=== PATIENT | female | born 1995 | race Two or more races ===

== ENCOUNTER → 2019-05-26 | Outpatient (CLI) | payer OTHER, SELFPAY ==
[2019-05-26 16:56] LABS: HEMATOCRIT 38.8 % (36.0-47.0); HEMOGLOBIN 12.4 g/dl (12.0-15.5); MEAN CORPUSCULAR HEMOGLOBIN 26.6 pg (27.0-33.0); MEAN CORPUSCULAR VOLUME 83.1 fl (80.0-96.0); PLATELET COUNT, AUTOMATED 232 10^3/uL (150-450); RED BLOOD COUNT 4.67 10^6/uL (4.00-5.40); WHITE BLOOD COUNT 7.7 10^3/uL (4.0-10.0)
[2019-05-26 22:07] LABS: CHLAMYDIA DNA AMPLIFICATION NEGATIVE (NEGATIVE); GC DNA AMPLIFICATION NEGATIVE (NEGATIVE)
[2019-05-27 09:47] LABS: HIV 1&2 SCREEN CENTAUR NEGATIVE (NEGATIVE); RUBELLA IgG QUALITATIVE IMMUNE (IMMUNE)
[2019-05-28 12:57] LABS: HEPATITIS B SURFACE ANTIGEN NEGATIVE (NEGATIVE); HEPATITIS C VIRUS ABY INDEX 0.1 INDEX (<0.8)
== END ==
LOC: M LRY 11:39
PROVIDERS: ATTEND Advanced Practice Midwife
DX: Z34.80 Encounter for supervision of other normal pregnancy, unspecified trimester (principal); Z3A.09 9 weeks gestation of pregnancy

== ENCOUNTER → 2019-09-05 | Outpatient (REF) | payer OTHER ==
[2019-09-05 14:23] LABS: HEMATOCRIT 32.9 % (36.0-47.0); HEMOGLOBIN 10.4 g/dl (12.0-15.5); MEAN CORPUSCULAR HEMOGLOBIN 26.9 pg (27.0-33.0); MEAN CORPUSCULAR HGB CONC 31.6 g/dl (32.0-36.5); MEAN CORPUSCULAR VOLUME 85.2 fl (80.0-96.0); PLATELET COUNT, AUTOMATED 204 10^3/uL (150-450); RED BLOOD COUNT 3.86 10^6/uL (4.00-5.40); WHITE BLOOD COUNT 8.7 10^3/uL (4.0-10.0)
== END ==
LOC: M PLALAB 11:41
PROVIDERS: ATTEND Advanced Practice Midwife
DX: Z36.89 Encounter for other specified antenatal screening (principal); Z3A.27 27 weeks gestation of pregnancy

== ENCOUNTER → 2019-09-05 | Outpatient (CLI) | payer OTHER ==
--- NOTE | 2019-09-05 17:12 | REP ---
Clinical: Anatomical evaluation. Findings: Examination demonstrates a single live intrauterine in cephalic presentation. motion is identified by technologist. Placenta is noted posterior and grade I without evidence for placenta previa or abruption. Amniotic fluid volume is normal. Cervix measures 3.8 cm in length and appears closed. No evidence for nuchal cord. Gestational age by LMP 27 weeks 4 days with CHAPINCITO 12/01/2019 . Gestational age by current measurements 27 weeks 2 days with CHAPINCITO 12/03/2019 . FHR equals 156 beats per minute. Estimated weight 1099 grams ( 42nd percentile). Anatomical assessment demonstrates normal structures including cranium, facial features, lungs, diaphragm, stomach, cord insertion/three-vessel cord, kidneys/bladder, and spine. Impression: Single live intrauterine in cephalic presentation demonstrating appropriate interval growth. In conjunction with prior examination anatomical assessment is complete and normal.
== END ==
LOC: M WHC 10:54
PROVIDERS: ATTEND Advanced Practice Midwife
DX: Z36.89 Encounter for other specified antenatal screening (principal); Z3A.27 27 weeks gestation of pregnancy

== ENCOUNTER 2019-11-07 23:09 | Outpatient (CLI) | payer OTHER ==
[2019-11-07 23:16] VITALS: BP 109/53
[2019-11-07] MEDS ORDERED: PRENTAB9 PO (23:43)
[2019-11-07] MEDS ORDERED: MAPA500T2 PO (23:43)
--- NOTE | 2019-11-08 00:17 | IPNPDOC ---
Text Note Date of Service The patient was seen on 11/08/19. NOTE Outpatient 24yo CHAPINCITO 12/01/2019. Presents @ 36w4d with complaints of shortness of breath. "Feel like I have a brick on my chest." Denies fever, cough. States no one else has been ill. Denies LOF, bleeding or regular UC Cat I tracing, no UC Audibly short of breath while speaking. Covid swab obtained. Pt discharged to ED for respiratory workup. Keep appt next week VS,Fishbone, I+O VS, Fishbone, I+O Vital Signs Date Time Temp Pulse Resp B/P (MAP) Pulse Ox O2 Delivery O2 Flow Rate FiO2 11/07/19 23:16 98.8 81 18 109/53 (71) 100 Room Air Mervat Reid CNM Nov 08, 2019 00:17
== END 2019-11-08 00:35 | disposition other institution (70) ==
LOC: EEVIPCON 23:09 → M LDO 23:09
PROVIDERS: ATTEND Advanced Practice Midwife
DX: O99.513 Diseases of the respiratory system complicating pregnancy, third trimester (principal); R06.02 Shortness of breath; Z3A.36 36 weeks gestation of pregnancy
CPT/HCPCS: 59025; G0378; G0463; U0002

== ENCOUNTER 2019-11-08 00:46 | Emergency (ER) | payer OTHER ==
[~2019-11-08] VITALS: Ht 160 cm; Wt 98.2 kg
[~2019-11-08 00:46] MED LIST: MAPA500T2 PO; PRENTAB9 PO
[2019-11-08 00:48] VITALS: BP 131/60
== END 2019-11-08 01:29 | disposition home or self-care (01) ==
LOC: M ED 00:46
DX: O99.89 Other specified diseases and conditions complicating pregnancy, childbirth and the puerperium (principal); R06.02 Shortness of breath; Z3A.00 Weeks of gestation of pregnancy not specified

== ENCOUNTER 2019-11-27 03:00 | Inpatient (IN) | payer OTHER ==
[2019-11-27] MEDS ORDERED: OXYTOCIN 30 UNITS IN 0.9% NaCl 500ML IV BAG (J2590) ONE (03:35)
[2019-11-27] MEDS ORDERED: OXYTOCIN 30 UNITS IN 0.9% NaCl 500ML IV BAG (J2590) As Ordered ONE (03:35)
[2019-11-27] MEDS ORDERED: FENTANYL 2MCG/ML ROPIVACAINE 0.2% IN 0.9% NACL 100ML IVBAG ONE (05:45)
[2019-11-27] MEDS ORDERED: FENTANYL 2MCG/ML ROPIVACAINE 0.2% IN 0.9% NACL 100ML IVBAG As Ordered ONE (05:45)
[2019-11-27] MEDS ORDERED: ePHEDrine SULFATE 25 MG/5 ML(5MG/ML) SYRINGE ONE (05:45)
[2019-11-27] MEDS ORDERED: ePHEDrine SULFATE 25 MG/5 ML(5MG/ML) SYRINGE As Ordered ONE (07:42)
[2019-11-27] MEDS ORDERED: ACETAMINOPHEN 500 MG TAB As Ordered ONE (17:43)
[2019-11-27] MEDS ORDERED: ACETAMINOPHEN 500 MG TAB ONE (17:43)
[2019-11-27] MEDS ORDERED: IBUPROFEN 800 MG TAB ONE (22:04)
[2019-11-27] MEDS ORDERED: IBUPROFEN 800 MG TAB As Ordered ONE (22:04)
[2019-11-28] MEDS ORDERED: IBUPROFEN 800 MG TAB ONE (09:16)
[2019-11-28] MEDS ORDERED: IBUPROFEN 800 MG TAB As Ordered ONE (09:16)
[2019-11-28] MEDS ORDERED: ACETAMINOPHEN 500 MG TAB As Ordered ONE (16:34)
[2019-11-28] MEDS ORDERED: ACETAMINOPHEN 500 MG TAB ONE (16:34)
[2019-11-28] MEDS ORDERED: MOM 30ML SUSPENSION UDC As Ordered ONE (17:41)
[2019-11-28] MEDS ORDERED: MOM 30ML SUSPENSION UDC ONE (17:41)
[2020-01-24 11:00] LABS: HEMATOCRIT 31.8 % (36.0-47.0); HEMOGLOBIN 10.1 g/dl (12.0-15.5); MEAN CORPUSCULAR HEMOGLOBIN 25.3 pg (27.0-33.0); MEAN CORPUSCULAR HGB CONC 31.8 g/dl (32.0-36.5); MEAN CORPUSCULAR VOLUME 79.7 fl (80.0-96.0); PLATELET COUNT, AUTOMATED 216 10^3/uL (150-450); RED BLOOD COUNT 3.99 10^6/uL (4.00-5.40); WHITE BLOOD COUNT 8.9 10^3/uL (4.0-10.0)
[2020-02-16 17:45] LABS: CORD GAS PCO2 A 70.9 mmHg; CORD GAS PH A 7.088 UNITS
[2020-02-16 17:46] LABS: CORD GAS ABE A -10.5; CORD GAS ABE V -7.5; CORD GAS HCO3 A 20.9 MEQ/L; CORD GAS HCO3 V 19.4 MEQ/L; CORD GAS O2 SAT A 55.4 %; CORD GAS PCO2 V 44.3 mmHg; CORD GAS PH V 7.26 UNITS; CORD GAS PO2 A 31.5 mmHg; CORD GAS PO2 V 40.8 mmHg; CORD GAS SBC A 15.4 MEQ/L; CORD GAS SBC V 18.1 MEQ/L; CORD GAS TCO2 A 23.1 MEQ/L; CORD GAS TCO2 V 20.8 MEQ/L
== END 2019-11-29 14:55 | disposition home or self-care (01) | DRG 807 ==
LOC: M LDI 03:00
PROVIDERS: ADMIT Advanced Practice Midwife; ATTEND Advanced Practice Midwife
PROC: 10E0XZZ Delivery of Products of Conception, External Approach (ICD-10-PCS; principal; 2019-11-27)
DX: O80 Encounter for full-term uncomplicated delivery (principal); Z37.0 Single live birth; Z3A.39 39 weeks gestation of pregnancy

== ENCOUNTER 2020-05-17 04:38 | Emergency (ER) | payer OTHER ==
[~2020-05-17] VITALS: Ht 160 cm; Wt 83.9 kg
[2020-05-17] MEDS ORDERED: KETOROLAC 60MG 2ML VIAL IM ONE (05:00)
[2020-05-17] MEDS ORDERED: METOCLOPRAMIDE INJ 10MG/2ML VIAL (J2765 PER 1) IM ONE (05:00)
[2020-05-17 06:09] VITALS: BP 135/64
== END 2020-05-17 06:10 | disposition home or self-care (01) ==
LOC: M ED 04:38
DX: J06.9 Acute upper respiratory infection, unspecified (principal); G44.209 Tension-type headache, unspecified, not intractable
CPT/HCPCS: 96372; 99283; J1885; J2765

== ENCOUNTER → 2020-11-30 | Outpatient (CLI) | payer OTHER ==
--- NOTE | 2020-11-30 15:35 | REP ---
INDICATION: ANATOMY. COMPARISON: None. FINDINGS: Living fetus in vertex presentation. heart rate 143 beats per minute. Anterior grade 1 placenta. No evidence of previa. Three vessels identified in the umbilical cord BPD 4.4 cm Head circumference 16.8 cm Abdominal circumference 14.2 cm Femur length 3.1 cm. These values correspond to gestational age of 19 weeks and 4 days. Anatomic survey was suboptimal for the face/profile and nose/lips. Main of the survey was completed and was unremarkable. Amniotic fluid is normal. Calculated weight 296 g. Cervical length 3.2 cm. IMPRESSION: Living intrauterine fetus CHAPINCITO 04/22/2021. <Electronically signed by Les Espinal > 11/30/20 [id number]
== END ==
LOC: M WHC 14:30
PROVIDERS: ATTEND Obstetrics & Gynecology
DX: Z34.92 Encounter for supervision of normal pregnancy, unspecified, second trimester (principal)

== ENCOUNTER → 2021-01-04 | Outpatient (CLI) | payer OTHER ==
--- NOTE | 2021-01-05 05:59 | REP ---
INDICATION: F/U ANATOMY COMPARISON: 11/30/2020 TECHNIQUE: Transabdominal obstetrical ultrasound with color Doppler evaluation. FINDINGS: Examination demonstrates a single live intrauterine in cephalic presentation. motion is identified by technologist. Placenta is noted anterior and grade 0 without evidence for placenta previa or abruption. Amniotic fluid volume is normal. Cervix measures 3.4 cm in length and appears closed.. Selected gestational age: 24 weeks 0 days with CHAPINCITO 04/26/2021. Gestational age by current measurements 25 weeks 2 days with CHAPINCITO 04/17/2021. FHR equals 127 beats per minute. Estimated weight 781 grams (90thpercentile). Anatomical assessment demonstrates normal structures including facial profile, nose/lips and facial features. IMPRESSION: Single live intrauterine in cephalic presentation demonstrating appropriate interval growth. In conjunction with prior examination anatomical assessment is complete and normal. <Electronically signed by Boston Wells > 01/05/21 [id number]
== END ==
LOC: M WHC 12:27
PROVIDERS: ATTEND Obstetrics & Gynecology
DX: Z36.9 Encounter for antenatal screening, unspecified (principal); Z3A.25 25 weeks gestation of pregnancy

== ENCOUNTER → 2021-02-22 | Outpatient (CLI) | payer OTHER ==
[2021-02-22 13:41] LABS: HEMATOCRIT 32.1 % (36.0-47.0); HEMOGLOBIN 10.4 g/dl (12.0-15.5); MEAN CORPUSCULAR HEMOGLOBIN 27.7 pg (27.0-33.0); MEAN CORPUSCULAR HGB CONC 32.4 g/dl (32.0-36.5); MEAN CORPUSCULAR VOLUME 85.4 fl (80.0-96.0); PLATELET COUNT, AUTOMATED 179 10^3/uL (150-450); RED BLOOD COUNT 3.76 10^6/uL (4.00-5.40); WHITE BLOOD COUNT 6.9 10^3/uL (4.0-10.0)
[2021-02-22 15:57] LABS: GC DNA AMPLIFICATION NEGATIVE (NEGATIVE)
== END ==
LOC: M PLALAB 10:25
PROVIDERS: ATTEND Obstetrics & Gynecology
DX: Z34.82 Encounter for supervision of other normal pregnancy, second trimester (principal)

== ENCOUNTER → 2021-03-23 | Outpatient (REF) | payer OTHER | LOC: M SFHCWAGY 17:12 | PROVIDERS: ATTEND Advanced Practice Midwife | DX: R82.90 Unspecified abnormal findings in urine (principal) ==

== ENCOUNTER → 2021-03-30 | Outpatient (CLI) | payer OTHER | LOC: M WHC 09:00 | PROVIDERS: ATTEND Advanced Practice Midwife | DX: Z34.82 Encounter for supervision of other normal pregnancy, second trimester (principal); Z53.8 Procedure and treatment not carried out for other reasons ==

== ENCOUNTER → 2021-04-01 | Outpatient (REF) | payer OTHER | LOC: M SFHCWAGY 17:02 | PROVIDERS: ATTEND Obstetrics & Gynecology | DX: Z34.83 Encounter for supervision of other normal pregnancy, third trimester (principal) ==

== ENCOUNTER 2021-04-20 11:56 | Inpatient (IN) | payer OTHER ==
[2021-04-20] VITALS (20 sets, daily range): BP systolic 95–135; BP diastolic 56–84
[~2021-04-20] VITALS: Ht 160 cm; Wt 95.2 kg
[2021-04-20] MEDS ORDERED: PRENTAB9 PO (12:09)
[2021-04-20] MEDS ORDERED: LIDOCAINE 1% MDV 20ML VIAL INFIL PRN (12:40)
[2021-04-20] MEDS ORDERED: OXYTOCIN DRIP 30 UNITS in IV 1 EA IV PRN ×4 (12:40)
[2021-04-20] MEDS ORDERED: CARBOPROST TROMETHAMINE 250 MCG/ML AMP IM PRN (12:40)
[2021-04-20] MEDS ORDERED: METHYLERGONOVINE MALEATE 0.2 MG/ML VIAL (J2210) IM PRN (12:40)
[2021-04-20] MEDS ORDERED: TRANEXAMIC ACID INJection 1,000 MG in NS 100 ML IV PRN (12:40)
[2021-04-20] MEDS ORDERED: OXYTOCIN INJ 10 UNITS/ML VIAL (J2590) IM PRN (12:40)
[2021-04-20] MEDS ORDERED: HOME MED LIST COMPLETE! XX SCH (13:10)
[2021-04-20 13:20] LABS: HEMATOCRIT 35.6 % (36.0-47.0); HEMOGLOBIN 11.7 g/dl (12.0-15.5); MEAN CORPUSCULAR HGB CONC 32.9 g/dl (32.0-36.5); MEAN CORPUSCULAR VOLUME 82.2 fl (80.0-96.0); PLATELET COUNT, AUTOMATED 213 10^3/uL (150-450); RED BLOOD COUNT 4.33 10^6/uL (4.00-5.40); WHITE BLOOD COUNT 9.1 10^3/uL (4.0-10.0)
[2021-04-20] MEDS ORDERED: OXYTOCIN DRIP 30 UNITS in IV 1 EA IV SCH (15:25)
[2021-04-20] MEDS ORDERED: LR 1,000 ML IV SCH (15:25)
--- NOTE | 2021-04-20 15:45 | HPE ---
HISTORY AND PHYSICAL DATE OF ADMISSION: 04/20/2021 HISTORY OF PRESENT ILLNESS: Rosalva is a 25-year-old 3, para 2,0,0,2 at 39 weeks and 1 day with an EDC of 04/26/2021 based on first trimester ultrasound. She presents to labor and delivery today with report of spontaneous rupture of membranes at approximately 11:20 a.m. She does report that contractions started almost immediately following rupture. She does report some mild bloody show and the fetus has been active. She has continued to have leakage. Her care was initiated at [facility] in the first trimester. Her course has been complicated by mild anemia. OBSTETRIC HISTORY: November 06, 2018 39 weeks gestation vaginal delivery, male, 7 pounds 1 ounces, vacuum-assisted; November 27, 2019 39 weeks and 5 days, 7 pounds 8 ounce male, vaginal delivery, no complications. OBSTETRIC LABS: A positive, antibody screen negative, Syphilis negative, Gonorrhea and Chlamydia negative. Hepatitis B negative. Hepatitis C negative. HIV negative. Rubella immune. Gestational diabetic screening normal at 87, Urine culture with no growth and GBS is negative. PAST MEDICAL HISTORY: Abnormal Pap smear. PAST SURGICAL HISTORY: Colposcopy. FAMILY HISTORY: Noncontributory. SOCIAL HISTORY: The patient is . and mother are at bedside for support. She is a nonsmoker. She denies alcohol and drug use. 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 She denies history of abuse, physical, sexual and emotional. ALLERGIES: NO KNOWN DRUG ALLERGIES. CURRENT MEDICATIONS: vitamin. PHYSICAL EXAMINATION: VITAL SIGNS: Temperature 97.9, pulse 93, respirations 18, BP 125/81. heart rate is 130 with moderate variability, positive accelerations and negative decelerations. Contractions are every 2-4 minutes. STERILE SPECULUM EXAM: She is grossly ruptured, clear fluid. STERILE VAGINAL EXAM: 2 cm dilated, 80% effaced, ballotable station. ABDOMEN: Gravid with cephalic presentation, estimated weight 7-1/2 pounds ASSESSMENT: Intrauterine at 39-1/7 weeks gestation. heart rate is category 1. Spontaneous rupture of membranes, early labor. PLAN: Admit the patient to labor and delivery. Out of bed ad grover. Routine laboratories. The patient desires to cope with her labor physiologically at this time. I do anticipate continued labor progress. The patient and her family's questions have been answered.
[2021-04-20] MEDS ORDERED: FENTANYL 2MCG/ML ROPIVACAINE 0.2% IN 0.9% NACL 100ML IVBAG As Ordered ONE (20:00)
--- NOTE | 2021-04-20 21:26 | DN ---
DELIVERY NOTE DATE OF DELIVERY: 04/20/2021 TIME OF : 2042 GENDER: Female APGARS: 9 and 9 LACERATIONS: ANESTHESIA: ESTIMATED BLOOD LOSS: 300 mL COUNTS: Correct and verified DESCRIPTION OF DELIVERY: Rosalva is a 25-year-old 3, para 3-0-0-3 now, who was admitted to labor and delivery with premature rupture of membranes. I.V. Pitocin was started and labor ensued. She coped with her labor physiologically. She reached complete dilation at 2039. She pushed to a normal spontaneous vaginal delivery of a live female in OA position with restitution to LOT position at 2042. There was no nuchal cord. The shoulders delivered with gentle downward traction and the corpus immediately followed. The female was placed on the maternal abdomen crying and active. Mouth and nares were bulb suctioned. The cord was clamped x2 once pulsations ceased and cut by the father of the baby under my direction. Cord blood was obtained. Spontaneous expulsion of an intact placenta with three-vessel cord by Davis mechanism was at 2046. Uterine hemostasis was achieved with I.V. Pitocin rapid infusion and uterine fundal massage. Estimated blood loss 300 mL. Perineum and vagina were inspected and noted to be intact. female weighed 3540 grams, 7 pounds 13 ounces; Apgars were 9 and 9. Family have named their daughter Sandra and mom is going to breastfeed. At the close of delivery, lap counts, instrument counts were correct and verified.
[2021-04-21] MEDS ORDERED: RHOGAM 300 MCG (1500 IU) INJ (J2790) IM SCH (00:05)
[2021-04-21] MEDS ORDERED: IBUPROFEN 600MG TAB PO PRN (00:05)
[2021-04-21] MEDS ORDERED: ACETAMINOPHEN 500 MG TAB PO PRN (00:05)
[2021-04-21] MEDS ORDERED: ACETAMINOPHEN TAB 650MG DOSE (2X325MG) PO PRN (00:05)
[2021-04-21] MEDS ORDERED: DIBUCAINE 1% OINTMENT 30GM TOP PRN (00:05)
[2021-04-21] MEDS ORDERED: DOCUSATE SODIUM 100MG CAPSULE PO PRN (00:05)
[2021-04-21] MEDS ORDERED: METHYLERGONOVINE MALEATE 0.2 MG TAB PO PRN (00:05)
[2021-04-21] MEDS ORDERED: MEASLES,MUMPS,RUBELLA VACCINE INJ (MMR-II) (90707) SC SCH (00:05)
[2021-04-21] MEDS: IBUPROFEN 800 MG TAB PO PRN ×2 (00:40→15:58)
[2021-04-21 06:02] VITALS: BP 128/65
[2021-04-21] MEDS: PRENATAL VITAMINS CHEWABLE TABLET PO SCH (07:32)
[2021-04-21 18:01] VITALS: BP 114/56
--- NOTE | 2021-04-21 18:47 | IPNPDOC ---
Progress Note Date of Service: Apr 21, 2021 Progress Note SUBJECT: Status post . She has been ambulating, voiding spontaneously without issue and tolerating regular diet. Lochia decreasing/minimal. Pain is well-controlled. Denies headache, visual changes, right upper quadrant pain, shortness breath or chest pain. OBJECTIVE: VITAL SIGNS: Within normal limits, afebrile. Alert and oriented times three. Abdomen: Fundus firm at U-2. Soft, NTTP. ASSESSMENT: Status post uncomplicated spontaneous vaginal delivery. Vitals within normal limits, afebrile, hemodynamically stable with no evidence of infection. PLAN: Discharge to home tomorrow Tylenol and Motrin for pain. Routine instructions/precautions reviewed. Routine PP visit in 6 weeks in clinic. VS, I&O, 24H, Fishbone Vital Signs/I&O Vital Signs Date Time Temp Pulse Resp B/P (MAP) Pulse Ox O2 Delivery O2 Flow Rate FiO2 04/21/21 18:01 97.9 79 17 114/56 (75) 98 Room Air I&O- Last 24 Hours up to 6 AM 04/21/21 06:00 Intake Total 2774 ml Output Total 1100 ml Balance 1674 ml JEFF ECHEVERRIA DO Apr 21, 2021 18:47
[2021-04-22 05:34] VITALS: BP 143/95
[2021-04-22 06:11] VITALS: BP 128/58
[2021-04-22] MEDS: PRENATAL VITAMINS CHEWABLE TABLET PO SCH (08:38)
== END 2021-04-22 13:09 | disposition home or self-care (01) | DRG 807 ==
LOC: M LDO 11:56 → M LDI 12:25 → M OBS 22:57
PROVIDERS: ADMIT Advanced Practice Midwife; ATTEND Advanced Practice Midwife
PROC: 10E0XZZ Delivery of Products of Conception, External Approach (ICD-10-PCS; principal; 2021-04-20)
DX: O99.02 Anemia complicating childbirth (principal); Z37.0 Single live birth; D64.9 Anemia, unspecified; Z3A.39 39 weeks gestation of pregnancy

== ENCOUNTER → 2021-11-02 | Outpatient (CLI) | payer OTHER ==
[2021-11-02 16:24] LABS: FREE T4 0.98 NG/DL (0.76-1.46); THYROID STIMULATING HORMONE 0.299 uIU/ML (0.358-3.740)
== END ==
LOC: M PLALAB 13:51
PROVIDERS: ATTEND Student in an Organized Health Care Education/Training Program
DX: F32.A Depression, unspecified (principal)